=== PATIENT | female | born 1955 | race Caucasian/White ===

== ENCOUNTER 2021-03-20 13:50 | Emergency (ER) | payer MEDICARE, BC ==
[2021-03-20] MEDS ORDERED: Sodium Chloride 0.9% 10 ML Syringe FLUSH PRN (13:56)
[2021-03-20] MEDS ORDERED: methylPREDNISolone Sodium Succinate 125 MG/2 ML SDV IVPUSH ONE (13:56)
[2021-03-20] MEDS ORDERED: diphenhydrAMINE 50 MG/ML SDV IVPUSH ONE (13:56)
--- NOTE | 2021-03-20 14:22 | EDM.PDOC ---
ED HPI GENERAL MEDICAL PROBLEM - General Chief Complaint: Allergic Reaction Stated Complaint: [facility] Time Seen by Provider: 03/20/21 13:56 Source of Information: Reports: Patient, EMS, Provider History Limitations: Reports: No Limitations - History of Present Illness INITIAL COMMENTS - FREE TEXT/NARRATIVE: The patient presents by [facility] for an allergic reaction. She said a friend cleaned her car and left an air freshener. She reacts to chemicals. She did not realize it was in there. She was driving to her doctor's appointment at [facility] and she started having wheezing and tightness in her chest. They have her a breathing treatment and some epinephrine. She feels much better now. She has no swelling in her throat now and she is breathing better. Onset: Sudden Duration: Minutes: Location: Reports: Chest Quality: Reports: Other (tightness) Severity: Moderate Improves with: Reports: None Worsens with: Reports: None Associated Symptoms: Reports: Chest Pain, Shortness of Breath. Denies: Cough, Fever/Chills, Headaches, Nausea/Vomiting - Related Data Allergies Allergy/AdvReac Type Severity Reaction Status Date / Time alcohol Allergy Hives Verified 03/20/21 14:00 [From Mastisol Adhesive] ciprofloxacin [From Cipro] Allergy Hives Verified 03/20/21 14:00 fentanyl Allergy Hives Verified 03/20/21 14:00 gum mastic Allergy Hives Verified 03/20/21 14:00 [From Mastisol Adhesive] methyl salicylate Allergy Hives Verified 03/20/21 14:00 [From Mastisol Adhesive] metronidazole [From Flagyl] Allergy Hives Verified 03/20/21 14:00 storax Allergy Hives Verified 03/20/21 14:00 [From Mastisol Adhesive] Home Meds: Home Meds predniSONE [Prednisone] 40 mg PO DAILY #10 tablet 03/20/21 [Rx] Past Medical History Cardiovascular History: Reports: High Cholesterol Respiratory History: Reports: Other (See Below) Other Respiratory History: allergies Gastrointestinal History: Reports: GERD, Other (See Below) Other Gastrointestinal History: gasteroparesis, IBS [employer] History: Reports: Musculoskeletal History: Reports: Other (See Below) Other Musculoskeletal History: bilateral wrist surgery, left hip surgery Psychiatric History: Reports: Anxiety, Depression Endocrine/Metabolic History: Reports: Hyperthyroidism - Infectious Disease History Infectious Disease History: Reports: Novel Coronavirus Social & Family History - Tobacco Use Tobacco Use Status *Q: Never Tobacco User Second Hand Smoke Exposure: No - Caffeine Use Caffeine Use: Reports: Coffee, Tea - Recreational Drug Use Recreational Drug Use: No ED ROS ALLERGIC REACTION - Review of Systems Review Of Systems: See Below Constitutional: Reports: No Symptoms HEENT: Reports: No Symptoms Respiratory: Reports: Shortness of Breath, Wheezing Cardiovascular: Reports: Chest Pain Endocrine: Reports: No Symptoms GI/Abdominal: Reports: No Symptoms : Reports: No Symptoms Musculoskeletal: Reports: No Symptoms ED EXAM GENERAL NO PERIP PULSE - Physical Exam Exam: See Below Exam Limited By: No Limitations General Appearance: Alert, No Apparent Distress Ears: Normal External Exam Nose: Normal Inspection Throat/Mouth: Normal Inspection Head: Atraumatic, Normocephalic Neck: Normal Inspection Respiratory/Chest: No Respiratory Distress, Lungs Clear, Normal Breath Sounds Cardiovascular: Regular Rate, Rhythm, No Edema, No Murmur GI/Abdominal: Soft, Non-Tender, No Organomegaly, No Mass Extremities: Normal Inspection Neurological: Alert, Oriented, No Motor/Sensory Deficits Course - Vital Signs Last Recorded V/S: Last Vital Signs Temp 98 F 03/20/21 13:56 Pulse 104 H 03/20/21 13:56 Resp 30 H 03/20/21 13:56 BP 140/65 03/20/21 13:56 Pulse Ox 100 03/20/21 13:56 - Orders/Labs/Meds Orders: Active Orders 24 hr Category Date Time Status Peripheral IV Care [RC] . DIRECTED Care 03/20/21 13:56 Active Sodium Chloride 0.9% [Saline Flush] Med 03/20/21 13:56 Active 10 ml FLUSH ASDIRECTED PRN Peripheral IV Insertion Adult [OM.PC] Routine Oth 03/20/21 13:56 Ordered Medication Orders Sodium Chloride (Sodium Chloride 0.9% 10 Ml Syringe) 10 ml FLUSH ASDIRECTED PRN PRN Reason: Keep Vein Open Last Admin: 03/20/21 14:06 Dose: 10 ml Documented by: MARYCHUY Meds: Medications Generic Name Dose Route Start Last Admin Trade Name Freq PRN Reason Stop Dose Admin Sodium Chloride 10 ml 03/20/21 13:56 03/20/21 14:06 Sodium Chloride 0.9% 10 Ml Syringe FLUSH 10 ml ASDIRECTED PRN Administration Keep Vein Open Discontinued Medications Generic Name Dose Route Start Last Admin Trade Name Freq PRN Reason Stop Dose Admin Diphenhydramine HCl 25 mg 03/20/21 13:56 03/20/21 14:06 Diphenhydramine 50 Mg/Ml Sdv IVPUSH 03/20/21 13:57 25 mg ONETIME ONE Administration Methylprednisolone Sodium Succinate 125 mg 03/20/21 13:56 03/20/21 14:06 Methylprednisolone Sodium Succinate 125 Mg/2 Ml Sdv IVPUSH 03/20/21 13:57 125 mg ONETIME ONE Administration - Re-Assessments/Exams Free Text/Narrative Re-Assessment/Exam: 03/20/21 14:23 I ordered an IV saline lock, solu-medrol 125mg IV, and benadryl 25mg IV. 03/20/21 15:15 She is feeling good. I will discharge her home on some prednisone. Departure - Departure Time of Disposition: 15:20 Disposition: Home, Self-Care 01 Condition: Good Clinical Impression: Allergic reaction Qualifiers: Encounter type: initial encounter Qualified Code(s): T78.40XA - Allergy, unspecified, initial encounter - Discharge Information *PRESCRIPTION DRUG MONITORING PROGRAM REVIEWED*: Not Applicable *COPY OF PRESCRIPTION DRUG MONITORING REPORT IN PATIENT REMI: Not Applicable Prescriptions: predniSONE [Prednisone] 40 mg PO DAILY #10 tablet Referrals: June Tran MD [Primary Care Provider] - 1 Week Forms: ED Department Discharge Additional Instructions: Take the prednisone 40mg daily for 5 days. Keep taking the pepcid. Take benadryl as needed for any allergy symptoms. Please return if you are worse. Sepsis Event Note (ED) - Evaluation Sepsis Screening Result: No Definite Risk - Focused Exam Vital Signs: Vital Signs Temp Pulse Resp BP Pulse Ox 03/20/21 13:56 98 F 104 H 30 H 140/65 100 - My Orders Last 24 Hours: My Active Orders 03/20/21 13:56 Peripheral IV Care [RC] . DIRECTED Sodium Chloride 0.9% [Saline Flush] 10 ml FLUSH ASDIRECTED PRN Peripheral IV Insertion Adult [OM.PC] Routine - Assessment/Plan Last 24 Hours: My Active Orders 03/20/21 13:56 Peripheral IV Care [RC] . DIRECTED Sodium Chloride 0.9% [Saline Flush] 10 ml FLUSH ASDIRECTED PRN Peripheral IV Insertion Adult [OM.PC] Routine
== END 2021-03-20 15:28 | disposition home or self-care (01) ==
LOC: JD.ED 13:50
DX: T78.40XA Allergy, unspecified, initial encounter (principal); Z88.1 Allergy status to other antibiotic agents; Z88.4 Allergy status to anesthetic agent; Z88.8 Allergy status to other drugs, medicaments and biological substances
CPT/HCPCS: 96374; 96375; 99284; J1200; J2930; 99283